=== PATIENT | female | born 1955 | race Caucasian/White ===

== ENCOUNTER → 2021-02-16 15:47 | Outpatient (CLI) | payer OTHER, SELFPAY ==
--- NOTE | ~2021-02-16 | XR_ITS ---
EXAMINATION: XR knee LT 3V DATE: 02/16/2021 16:14 INDICATION: Left knee pain. TECHNIQUE: 3 views of left knee were obtained. COMPARISON: Left knee radiographs 02/24/2017 FINDINGS: Bone alignment is normal. No fracture. There is moderate osteoarthritis of medial compartme nt and mild osteoarthritis of lateral and patellofemoral compartments. No knee joint effusion. IMPRESSION: 1. Moderate left knee osteoarthritis. Reviewed, dictated and finalized at location A.
== END ==
PROVIDERS: PCP Family Medicine; Visit Provider Family Medicine
DX: M17.12 Unilateral primary osteoarthritis, left knee (principal)
CPT/HCPCS: 73562

== ENCOUNTER → 2021-03-12 03:00 | Outpatient (CLI) | payer OTHER, SELFPAY ==
[2021-03-12 19:18] LABS: SARS-CoV-2 RNA PCR Negative
== END ==
PROVIDERS: PCP Family Medicine Adolescent Medicine; Visit Provider Family Medicine Adolescent Medicine
DX: R51.9 Headache, unspecified (principal); Z20.822 Contact with and (suspected) exposure to COVID-19
CPT/HCPCS: C9803; U0003; U0005

== ENCOUNTER 2022-04-15 09:33 | Outpatient (CLI) | payer OTHER, SELFPAY ==
--- NOTE | ~2022-04-15 | MR_ITS ---
EXAMINATION: MR knee LT wo con DATE: 04/15/2022 10:26 INDICATION: Left knee pain TECHNIQUE: Magnetic resonance imaging (MRI) of the left knee was performed without intravenous contra st. Sequences included coronal PD-weighted FSE, coronal PD-weighted FS FSE, sagittal T2-weighted FSE , sagittal PD-weighted FS FSE and axial PD weighted fat saturated FSE. COMPARISON: None. FINDINGS: Medial compartment: Longitudinal horizontal tear extending to the inferior articular surface at the medial extruded body of the medial meniscus. Diffuse partial thickness chondral ulceration with cortical irregularity and mild underlying cortical irregularity and regions of subarticular edema-like marrow signal change franck ng the weightbearing medial femoral condyle and anterior two thirds of the medial tibial plateau. Lateral compartment: Small focus of increased signal at the inner free edge of the body of the lateral meniscus seen on on ly a single coronal image which could represent either fraying along the free edge or a very small ra dial tear. Articular cartilage is normal. Patellofemoral compartment: Mild diffuse partial thickness cartilage loss at the patellofemoral compartment with deep fissuring w ithout degenerative subchondral changes at the central aspect of the apical ridge and medial side of the lateral facet. Diffuse partial-thickness trochlear cartilage loss with smooth chondral surface. Ligaments and tendons: Anterior and posterior cruciate ligaments are normal. The medial collateral ligament and fibular vinnie ateral ligament complex are normal. The extensor mechanism is normal. The visualized medial and later al hamstring tendons as well as the iliotibial band are normal. Fluid: Physiologic amount of fluid in the joint space. No loose osteochondral bodies identified. Osseous/other: Bone alignment is normal. No fracture or pathologic marrow replacing process. IMPRESSION: 1. Small longitudinal horizontal tear at the body of the medial meniscus. 2. Focal fraying versus versus small radial tear at the inner free edge of the body of the lateral me niscus. 3. Coarse tricompartmental osteoarthritis, moderate to severe with extensive high-grade chondral samantha jordi in the medial compartment and mild with moderate grade chondromalacia in the patellofemoral claudia rtment. Reviewed, dictated and finalized at location A. IMPRESSION: 1. Small longitudinal horizontal tear at the body of the medial meniscus. 2. Focal fraying versus versus small radial tear at the inner free edge of the body of the lateral meniscus. 3. Coarse tricompartmental osteoarthritis, moderate to severe with extensive hi gh-grade chondral malacia in the medial compartment and mild with moderate grad e chondromalacia in the patellofemoral compartment.
== END 2022-04-15 09:34 | disposition home or self-care (01) ==
PROVIDERS: PCP Family Medicine; Visit Provider Orthopaedic Surgery
DX: M17.12 Unilateral primary osteoarthritis, left knee (principal); S83.242A Other tear of medial meniscus, current injury, left knee, initial encounter; X58.XXXA Exposure to other specified factors, initial encounter
CPT/HCPCS: 73721

== ENCOUNTER 2023-11-30 12:43 | Outpatient (CLI) | payer OTHER, SELFPAY ==
--- NOTE | ~2023-11-30 | XR_ITS ---
Left Knee Technique: AP, lateral, and sunrise views were obtained. Clinical History: Osteoarthritis Findings: No fracture or dislocation is seen. There is medial compartment narrowing and minimal degen erative spurring at any. Soft tissues are unremarkable. No joint effusion is seen. Impression: Mild medial compartment narrowing and minimal degenerative spurring about the knee. Reviewed, dictated and finalized at location . Impression: Mild medial compartment narrowing and minimal degenerative spurring about the k nee.
== END 2023-11-30 12:44 | disposition home or self-care (01) ==
PROVIDERS: PCP Family Medicine; Visit Provider Orthopaedic Surgery
DX: M17.12 Unilateral primary osteoarthritis, left knee (principal)
CPT/HCPCS: 73564